=== PATIENT | male | born 1945 | race Caucasian/White ===

== ENCOUNTER 2021-04-26 17:59 | Emergency (ER) | payer OTHER ==
[~2021-04-26] VITALS: Ht 175.3 cm; Wt 104.3 kg
--- NOTE | 2021-04-26 18:06 | NUR ---
Came in ER per arjun brought by BLS paramedics from [facility] this 76 yr old male, c/o for medical clearance to [facility]. Pt states " I don't know why they send me here at hospital". Alert, oriented, mild upset, respiration even/unlabored, no acute distress noted, w/ bilateral lower limb pitting edema +1 noted, bedbound. hx HTN, morbid obesity, pneumonia, covid 19.
--- NOTE | 2021-04-26 18:07 | NUR ---
covid and mrsa swab performed at bedside and sent to lab
[2021-04-26 18:15] VITALS: BP_SYST 134
--- NOTE | 2021-04-26 18:35 | NUR ---
Refused for IV cannula. refurbish technician at bedside, blood draw.
[2021-04-26 18:51] LABS: BASOPHILS # (AUTO) 0.1 K/uL (0.0-0.2); BASOPHILS % (AUTO) 0.7 % (0.0-2.0); EOSINOPHILS % (AUTO) 0.5 % (0.0-4.0); HEMATOCRIT 46.8 % (36-54); HEMOGLOBIN 15.7 g/dL (14.0-18.0); LYMPHOCYTES # (AUTO) 2.3 K/uL (1.0-5.5); MEAN CORPUSCULAR HEMOGLOBIN 33 pg (27-31); MEAN CORPUSCULAR HGB CONC 34 % (32-36); MEAN CORPUSCULAR VOLUME 97 fL (79.0-98.0); MONOCYTES # (AUTO) 0.8 K/uL (0.0-1.0); MONOCYTES % (AUTO) 9.7 % (1.7-9.3); NEUTROPHILS # (AUTO) 5.5 K/uL (1.8-7.7); NEUTROPHILS % (AUTO) 63.1 % (40.0-70.0); PLATELET COUNT (AUTO) 171 K/uL (130-430); RED BLOOD CELL COUNT(AUTO) 4.83 MIL/uL (4.2-6.2); RED CELL DISTRIBUTION WIDTH 15.1 % (9.0-15.0); WHITE BLOOD COUNT (AUTO) 8.7 K/uL (4.8-10.8)
--- NOTE | 2021-04-26 19:10 | NUR ---
Endorsed to oven baker RN Shaw in stable condition for continuity of care.
[2021-04-26 19:47] LABS: ANION GAP 11 (5-15); CALCIUM 9.6 mg/dL (8.4-11.0); CHLORIDE 103 mmol/L (98-107); GLUCOSE 135 mg/dL (70-99); POTASSIUM 3.9 mmol/L (3.5-5.1); SODIUM SERUM 139 mmol/L (136-145); UREA NITROGEN, BLOOD 9 mg/dL (8-21)
[2021-04-26 19:48] LABS: ALANINE AMINOTRANSFERASE 25 U/L (12-78); ALBUMIN 3.2 g/dL (3.4-4.8); ASPARTATE AMINOTRANSFERASE 44 U/L (10-37); CREATININE 0.78 mg/dL (0.55-1.30)
--- NOTE | 2021-04-26 19:54 | NUR ---
refusing to get VS taken as well
--- NOTE | 2021-04-26 19:54 | NUR ---
pt refusing to be on monitor, said he doesnt want to be here now
[2021-04-26 20:14] LABS: ACETAMINOPHEN < 1 ug/mL (1-30); ALCOHOL, BLOOD < 3 mg/dL (<10)
--- NOTE | 2021-04-26 20:33 | NUR ---
SPOKE WITH [facility] AND REPORT GIVEN. AWAITING AMBULANCE AT 2230 FOR DISCHARGE BACK
--- NOTE | 2021-04-27 00:29 | NUR ---
PT STILL REFUSES TO GET VS TAKEN
--- NOTE | 2021-04-27 00:29 | NUR ---
Patient given written and verbal discharge instructions and verbalizes understanding. ER MD discussed with patient the results and treatment provided. Patient in stable condition. ID arm band removed. Patient educated on pain management and to follow up with PMD. Pain Scale 0/10. Opportunity for questions provided and answered. Medication side effect fact sheet provided.
== END 2021-04-27 00:27 | disposition home or self-care (01) ==
LOC: SED 17:59
DX: R45.6 Violent behavior (principal); F32.9 Major depressive disorder, single episode, unspecified; Z79.899 Other long term (current) drug therapy; Z20.822 Contact with and (suspected) exposure to COVID-19
CPT/HCPCS: 36415; 71045; 80053; 82550; 84484; 85025; 87081; 87426; 93005; 99285; G0480; G0481; G0482